=== PATIENT | female | born 1985 | race Caucasian/White ===

== ENCOUNTER 2016-11-25 04:36 | Inpatient (IN) | payer BC ==
[~2016-11-25] VITALS: Ht 175.3 cm; Wt 94.5 kg
[~2016-11-25 04:36] MED LIST: BENADRYL25 M2 PO; MOTRIN 600600 MG/TAB PO; PERCOCET 325 MG1 TA2 PO; PRENATAL1 TA7 PO; SENOKOT S 50 MG1 TAB PO
[2016-11-29] MEDS ORDERED: PHENERGAN 25 TA25 MG PO (11:52)
[2017-01-14] VITALS (20 sets, daily range): BP systolic 100–121; BP diastolic 59–81; PULSE 60–100; TEMP 97.5–98.2
[2017-01-14 02:33] LABS: BASO % 0.4 % (0.0-2.0); EOS # 0.2 (0.0-0.7); GRAN # 5.6 (1.4-6.5); GRAN % 56.2 % (42.2-75.2); HEMOGLOBIN 12.5 g/dl (12.5-16.0); LYMPH # 3.1 (1.2-3.4); LYMPH % 31.2 % (20.0-51.0); MEAN CELL VOLUME 92 fl (80.0-100.0); MEAN CORPUSCULAR HEMOGLOBIN 32 pg (27.0-31.0); MEAN CORPUSCULAR HGB CONC 34 g/dl (33.0-37.0); MEAN PLATELET VOLUME 10.1 fl (7.4-10.4); MONO % 9.5 % (1.7-9.3); PLATELET COUNT 244 K/mm3 (130-400); RED BLOOD COUNT 3.96 M/mm3 (4.10-5.30)
[2017-01-14 02:34] LABS: HEMATOCRIT 36.5 % (37.0-47.0)
[2017-01-15 01:15] VITALS: BP 105/59; PULSE 74; TEMP 97.8
[2017-01-15 04:15] VITALS: BP 110/56; PULSE 77; TEMP 97.8
[2017-01-15 07:28] LABS: HEMATOCRIT 32.7 % (37.0-47.0)
[2017-01-15 08:50] VITALS: BP 125/68; PULSE 87; TEMP 98.2
[2017-01-15 15:55] VITALS: BP 131/76; PULSE 70; TEMP 97.8
[2017-01-15 20:30] VITALS: BP 110/62; PULSE 68; TEMP 98.1
[2017-01-16 07:29] VITALS: BP 124/65; PULSE 73; TEMP 97.9
[2017-01-16] MEDS ORDERED: MOTRIN 600600 MG/TAB PO (12:22)
[2017-01-16] MEDS ORDERED: PERCOCET 325 MG1 TA2 PO (12:22)
== END 2017-01-16 13:20 | disposition home or self-care (01) | DRG 766 ==
LOC: OB 01-14 01:31 → LDRO 01-15 04:36 → EDSTATUS 01-15 07:34 → OB 01-16 13:20
PROVIDERS: Obstetrics & Gynecology
PROC: 10D00Z1 Extraction of Products of Conception, Low, Open Approach (ICD-10-PCS; principal; 2017-01-14)
DX: O34.211 Maternal care for low transverse scar from previous cesarean delivery (principal); N85.8 Other specified noninflammatory disorders of uterus; O99.824 Streptococcus B carrier state complicating childbirth; Z3A.39 39 weeks gestation of pregnancy; Z37.0 Single live birth
CPT/HCPCS: J0171; J0690; J1200; J1885; J2270; J2370; J2405; J2590; J7120

== ENCOUNTER 2016-11-29 10:20 | Emergency (ER) | payer BC ==
[~2016-11-29] VITALS: Ht 175.3 cm; Wt 90.9 kg
[2016-11-29 10:56] LABS: PH 6 (5-8); URINE APPEARANCE Hazy; URINE BACTERIA None Seen /hpf; URINE BILIRUBIN Negative (NEGATIVE); URINE BLOOD Negative (NEGATIVE); URINE COLOR Amber; URINE GLUCOSE Negative (NEGATIVE); URINE KETONE 2+ (NEGATIVE); URINE RBC 0-2 /hpf; URINE WBC 0-2 /hpf
[2016-11-29 11:20] LABS: BASO % 0.3 % (0.0-2.0); EOS % 0.1 % (0-4.0); GRAN # 9.4 (1.4-6.5); GRAN % 72.9 % (42.2-75.2); HEMATOCRIT 33.7 % (37.0-47.0); HEMOGLOBIN 11.6 g/dl (12.5-16.0); LYMPH # 2.3 (1.2-3.4); LYMPH % 18.1 % (20.0-51.0); MEAN CELL VOLUME 92 fl (80.0-100.0); MEAN CORPUSCULAR HEMOGLOBIN 32 pg (27.0-31.0); MEAN CORPUSCULAR HGB CONC 34 g/dl (33.0-37.0); MEAN PLATELET VOLUME 9.6 fl (7.4-10.4); MONO # 0.9 (0.1-0.6); MONO % 7.2 % (1.7-9.3); PLATELET COUNT 233 K/mm3 (130-400); RED BLOOD COUNT 3.67 M/mm3 (4.10-5.30); REDCELL DISTRIBUTION WIDTH-CV 13.7 % (11.5-14.5); WHITE BLOOD COUNT 12.9 K/mm3 (4.8-10.8)
[2016-11-29 11:31] LABS: CALCIUM 8.1 mg/dL (8.4-10.2); CREATININE, serum 0.57 mg/dL (0.52-1.25); POTASSIUM 3.4 mmol/L (3.4-5.0)
[2016-11-29] MEDS ORDERED: PHENERGAN 25 TA25 MG PO (11:52)
[2016-11-29 12:26] VITALS: BP 103/61; PULSE 78; TEMP 100.4
== END 2016-11-29 12:32 | disposition home or self-care (01) ==
LOC: COL.ER 10:20
PROVIDERS: Emergency Medicine
DX: O98.513 Other viral diseases complicating pregnancy, third trimester (principal); B34.9 Viral infection, unspecified; Z3A.33 33 weeks gestation of pregnancy
CPT/HCPCS: J7030

== ENCOUNTER → 2018-07-07 | Outpatient (CLI) | payer SELFPAY ==
[~2018-07-07] MED LIST changes: +PHENERGAN 25 TA25 MG PO
== END ==
LOC: MC.RAD 11:37
DX: Z12.31 Encounter for screening mammogram for malignant neoplasm of breast (principal)

== ENCOUNTER → 2020-02-17 | Outpatient (CLI) | payer OTHER | LOC: MC.RAD 08:15 | DX: Z12.31 Encounter for screening mammogram for malignant neoplasm of breast (principal) ==

== ENCOUNTER → 2021-04-25 | Outpatient (CLI) | payer BC | LOC: MC.RAD 08:50 | DX: Z12.31 Encounter for screening mammogram for malignant neoplasm of breast (principal) ==

== ENCOUNTER → 2022-05-29 | Outpatient (CLI) | payer BC | LOC: MC.RAD 05-11 07:45 | DX: Z12.31 Encounter for screening mammogram for malignant neoplasm of breast (principal) ==

== ENCOUNTER → 2023-12-03 | Outpatient (CLI) | payer BC | LOC: MC.RAD 07:09 | DX: Z12.31 Encounter for screening mammogram for malignant neoplasm of breast (principal); Z80.3 Family history of malignant neoplasm of breast ==